=== PATIENT | female | born 1965 | race Two or more races ===

== ENCOUNTER 2018-04-14 08:26 | Outpatient (CLI) | payer OTHER ==
[~2018-04-14 08:26] MED LIST: CIPRO500 MG PO; FLAGYL500MG PO; PREVACID30 MG PO
== END 2018-04-14 15:17 | disposition home or self-care (01) ==
LOC: LAB 08:26
DX: Z00.00 Encounter for general adult medical examination without abnormal findings (principal); E03.9 Hypothyroidism, unspecified; E78.2 Mixed hyperlipidemia; N39.0 Urinary tract infection, site not specified; Z11.4 Encounter for screening for human immunodeficiency virus [HIV]; Z12.11 Encounter for screening for malignant neoplasm of colon; E55.9 Vitamin D deficiency, unspecified; Z21 Asymptomatic human immunodeficiency virus [HIV] infection status; R79.9 Abnormal finding of blood chemistry, unspecified; R79.89 Other specified abnormal findings of blood chemistry

== ENCOUNTER 2018-04-14 09:03 | Outpatient (CLI) | payer OTHER | END 2018-04-14 09:29 | disposition home or self-care (01) | LOC: MAMO-SONO 09:03 | DX: Z12.31 Encounter for screening mammogram for malignant neoplasm of breast (principal); R10.2 Pelvic and perineal pain; N64.89 Other specified disorders of breast; N64.59 Other signs and symptoms in breast; N64.9 Disorder of breast, unspecified ==

== ENCOUNTER 2018-07-12 11:57 | Outpatient (CLI) | payer OTHER | END 2018-07-12 12:04 | disposition home or self-care (01) | LOC: LAB 11:57 | DX: Z11.1 Encounter for screening for respiratory tuberculosis (principal) ==

== ENCOUNTER → 2019-06-27 07:03 | Outpatient (CLI) | payer OTHER | END | disposition home or self-care (01) | LOC: LAB 07:03 | DX: E03.8 Other specified hypothyroidism (principal); I10 Essential (primary) hypertension; Z00.00 Encounter for general adult medical examination without abnormal findings; E78.00 Pure hypercholesterolemia, unspecified; Z11.4 Encounter for screening for human immunodeficiency virus [HIV]; Z12.11 Encounter for screening for malignant neoplasm of colon; E55.9 Vitamin D deficiency, unspecified; Z21 Asymptomatic human immunodeficiency virus [HIV] infection status; R79.89 Other specified abnormal findings of blood chemistry ==

== ENCOUNTER 2019-06-27 07:43 | Outpatient (CLI) | payer OTHER | END 2019-06-27 08:02 | disposition home or self-care (01) | LOC: MAMO-SONO 07:43 | DX: Z12.31 Encounter for screening mammogram for malignant neoplasm of breast (principal); Z87.898 Personal history of other specified conditions; N63.10 Unspecified lump in the right breast, unspecified quadrant; N63.20 Unspecified lump in the left breast, unspecified quadrant; N64.59 Other signs and symptoms in breast; N64.89 Other specified disorders of breast; N94.0 Mittelschmerz; R10.2 Pelvic and perineal pain; N94.89 Other specified conditions associated with female genital organs and menstrual cycle ==

== ENCOUNTER 2019-07-25 05:00 | Day surgery (SDC) | payer OTHER ==
[~2019-07-25 05:00] MED LIST changes: +WELLBUTRIN SR100 MG PO
== END 2019-07-25 12:15 | disposition home or self-care (01) ==
LOC: CIR.AMB 05:00
DX: Z30.2 Encounter for sterilization (principal); N93.8 Other specified abnormal uterine and vaginal bleeding; Z30.432 Encounter for removal of intrauterine contraceptive device

== ENCOUNTER 2019-08-21 11:53 | Emergency (ER) | payer OTHER ==
[~2019-08-21] VITALS: Ht 170.2 cm; Wt 94.3 kg
== END 2019-08-21 13:32 | disposition home or self-care (01) ==
LOC: ER 11:53
DX: M25.531 Pain in right wrist (principal)

== ENCOUNTER → 2019-08-22 13:41 | Outpatient (CLI) | payer OTHER | END | disposition home or self-care (01) | LOC: LAB 13:41 | DX: M10.041 Idiopathic gout, right hand (principal); M79.641 Pain in right hand ==

== ENCOUNTER 2019-09-12 13:23 | Outpatient (CLI) | payer OTHER | END 2019-09-12 13:32 | disposition home or self-care (01) | LOC: SONOGRAMA 13:23 | DX: N60.11 Diffuse cystic mastopathy of right breast (principal); N60.12 Diffuse cystic mastopathy of left breast ==

== ENCOUNTER 2020-02-10 13:26 | Outpatient (CLI) | payer OTHER | END 2020-02-10 13:35 | disposition home or self-care (01) | LOC: SONOGRAMA 13:26 | DX: N60.11 Diffuse cystic mastopathy of right breast (principal); N60.12 Diffuse cystic mastopathy of left breast ==

== ENCOUNTER → 2020-08-20 14:44 | Outpatient (CLI) | payer OTHER | END | disposition home or self-care (01) | LOC: LAB 14:44 | PROVIDERS: ATTEND General Practice | DX: Z00.00 Encounter for general adult medical examination without abnormal findings (principal) ==

== ENCOUNTER 2020-08-21 17:12 | Emergency (ER) | payer OTHER ==
[~2020-08-21] VITALS: Ht 170.2 cm; Wt 92.1 kg
== END 2020-08-21 22:54 | disposition home or self-care (01) ==
LOC: ER 17:12
DX: K57.30 Diverticulosis of large intestine without perforation or abscess without bleeding (principal); Z03.818 Encounter for observation for suspected exposure to other biological agents ruled out; R10.32 Left lower quadrant pain

== ENCOUNTER 2021-05-24 05:55 | Day surgery (SDC) | payer OTHER | END 2021-05-24 10:00 | disposition home or self-care (01) | LOC: AMB-ENDOS 05:55 | PROVIDERS: ATTEND Colon & Rectal Surgery | DX: D12.2 Benign neoplasm of ascending colon (principal); K64.1 Second degree hemorrhoids; Z20.822 Contact with and (suspected) exposure to COVID-19 ==

== ENCOUNTER → 2021-06-27 | Outpatient (CLI) | payer OTHER | END | disposition home or self-care (01) | LOC: LAB 14:16 | PROVIDERS: ATTEND Emergency Medicine Pediatric Emergency Medicine | DX: Z03.818 Encounter for observation for suspected exposure to other biological agents ruled out (principal) ==

== ENCOUNTER 2021-07-16 08:00 | Outpatient (CLI) | payer OTHER | END 2021-07-16 08:30 | disposition home or self-care (01) | LOC: PPH VACUNA 08:00 | DX: Z23 Encounter for immunization (principal) ==

== ENCOUNTER 2021-07-26 07:06 | Outpatient (CLI) | payer OTHER | END 2021-07-26 07:14 | disposition home or self-care (01) | LOC: LAB 07:06 | PROVIDERS: ATTEND Obstetrics & Gynecology | DX: E03.8 Other specified hypothyroidism (principal); I10 Essential (primary) hypertension; Z00.00 Encounter for general adult medical examination without abnormal findings; E78.00 Pure hypercholesterolemia, unspecified; N39.0 Urinary tract infection, site not specified; Z11.4 Encounter for screening for human immunodeficiency virus [HIV]; E55.9 Vitamin D deficiency, unspecified; Z21 Asymptomatic human immunodeficiency virus [HIV] infection status; R79.89 Other specified abnormal findings of blood chemistry ==

== ENCOUNTER 2021-08-06 08:00 | Outpatient (CLI) | payer OTHER | END 2021-08-06 08:30 | disposition home or self-care (01) | LOC: PPH VACUNA 08:00 | PROVIDERS: ATTEND Emergency Medicine Pediatric Emergency Medicine | DX: Z23 Encounter for immunization (principal) ==

== ENCOUNTER 2021-10-07 16:07 | Outpatient (CLI) | payer OTHER | END 2021-10-07 16:11 | disposition home or self-care (01) | LOC: RAD 16:07 | DX: J20.8 Acute bronchitis due to other specified organisms (principal) ==

== ENCOUNTER 2022-01-21 08:00 | Outpatient (CLI) | payer OTHER | END 2022-01-21 08:30 | disposition home or self-care (01) | LOC: PPH VACUNA 08:00 | PROVIDERS: ATTEND Emergency Medicine Pediatric Emergency Medicine | DX: Z23 Encounter for immunization (principal) ==

== ENCOUNTER 2023-01-29 14:19 | Outpatient (CLI) | payer OTHER | END 2023-01-29 15:56 | disposition home or self-care (01) | LOC: RAD 14:19 | PROVIDERS: ATTEND Anesthesiology | DX: W88.8XXA Exposure to other ionizing radiation, initial encounter (principal) ==

== ENCOUNTER 2023-08-17 09:30 | Outpatient (CLI) | payer OTHER | END 2023-08-17 09:40 | disposition home or self-care (01) | LOC: PPH VACUNA 09:30 | PROVIDERS: ATTEND Emergency Medicine Pediatric Emergency Medicine | DX: Z23 Encounter for immunization (principal) ==

== ENCOUNTER 2025-03-27 08:23 | Outpatient (CLI) | payer OTHER | END 2025-03-27 08:25 | disposition home or self-care (01) | LOC: SONOGRAMA 08:23 | PROVIDERS: ATTEND Pathology Anatomic Pathology & Clinical Pathology | DX: D34 Benign neoplasm of thyroid gland (principal); E03.8 Other specified hypothyroidism ==

== ENCOUNTER 2025-09-09 08:13 | Emergency (ER) | payer OTHER ==
[~2025-09-09] VITALS: Ht 170.2 cm; Wt 92.5 kg
[2025-09-09] MEDS ORDERED: VENLAFAXINE HCL75 M1 PO (08:20)
[2025-09-09] MEDS ORDERED: MOUNJARO2.5 MG/0.5 SQ (08:20)
[2025-09-09] MEDS ORDERED: ONDANSETRON HCL 2 MG/ML VIAL IV STA ×2 (08:35→10:29)
[2025-09-09] MEDS ORDERED: 0.9 % SODIUM CHLORIDE 1,000 ML IV STA (08:35)
[2025-09-09] MEDS ORDERED: FAMOTIDINE/PF 20 MG/2 ML VIAL IV PUSH STA (08:35)
[2025-09-09] MEDS ORDERED: HYOSCYAMINE SULFATE 0.125 MG TAB.SUBL SL STA (08:36)
[2025-09-09] MEDS ORDERED: ONDANSETRON HCL 2 MG/ML VIAL ONE ×2 (08:57→10:37)
[2025-09-09] MEDS ORDERED: HYOSCYAMINE SULFATE 0.125 MG TAB.SUBL ONE (08:57)
[2025-09-09] MEDS ORDERED: FAMOTIDINE/PF 20 MG/2 ML VIAL ONE (08:57)
[2025-09-09 09:34] LABS: BASO % 0.4 % (0.1-1.2); EOS # 0.01 (0.04-0.54); EOS % 0.1 % (0.7-7.0); LYMPH # 2.98 (1.18-3.74); LYMPH % 28.0 % (19.3-53.1); MEAN PLATELET VOLUME 9.00 fl (9.4-12.4); MONO # 0.76 (0.24-0.82); MONO % 7.1 % (4.7-12.5); NEUT # 6.81 (1.56-6.13); NEUT % 64.1 % (34.0-71.1); RED CELL DISTRIBUTION WIDTH 13.4 % (11.6-14.4)
[2025-09-09 10:01] LABS: ALT/SGPT 56.0 U/L (12-78); AST/SGOT 28.0 U/L (15-37); BILIRUBIN TOTAL 0.3 mg/dL (0.3-1.2); BUN CREA RATIO 22.0 (7.0-25.0); CREATININE SERUM 0.97 mg/dL (0.55-1.02); GFR 58.98; GLOBULINA 4.9 G/DL (2.4-3.5); GLUCOSE FASTING 132.0 mg/dL (65-100); OSMOLALITY SERUM 284.0 MOSM/KG (275-295)
== END 2025-09-09 15:46 | disposition home or self-care (01) ==
LOC: ER 08:13
PROVIDERS: General Practice
DX: R10.32 Left lower quadrant pain (principal); K57.30 Diverticulosis of large intestine without perforation or abscess without bleeding; K76.0 Fatty (change of) liver, not elsewhere classified; E11.9 Type 2 diabetes mellitus without complications; Z79.85 Long-term (current) use of injectable non-insulin antidiabetic drugs; Z88.6 Allergy status to analgesic agent; Z88.8 Allergy status to other drugs, medicaments and biological substances